=== PATIENT | male | born 1990 | race Caucasian/White ===

== ENCOUNTER 2016-12-01 10:26 | Emergency (ER) | payer SELFPAY ==
--- NOTE | 2016-12-08 08:15 | ER ---
ADMIT: 12/01/2016 RM/LOC: ER [facility] MR#: [id number] [address] [address] [place] [address] [address] Emergency Room Report SEX: M AGE: 26 : 1990 DATE: 12/01/2016 HISTORY OF PRESENT ILLNESS: Complaining of shortness of breath for 1 day. He says his brother has been smoking, and he is exposed to his cigarette smoke. He does have a history of asthma as he reports. He has an inhaler at home. He said it is not helping him. Upon arrival, he does not look like he is in any acute distress, but he said that this morning he was short of breath. PHYSICAL EXAMINATION: VITAL SIGNS: Within normal limits. GENERAL: Alert and oriented. Girlfriend at bedside. LUNGS: He does, however, have a respiratory examination. Decreased breath sounds. No wheezing though. O2 sat reveals 99% to 100%. EXTREMITIES: Nontender. NEUROLOGIC: Oriented x4. He was given a DuoNeb treatment and prescribed prednisone. Continue his medications at home. Hydration. Follow up with PCP. Given city call Dr. Cortes. SUNNY Pelletier / Darrion Howe MD / hiral JOB #: [id number] CC: Darrion Howe MD, Attending Physician Samson Cortes MD
== END 2016-12-01 11:50 | disposition home or self-care (01) ==
LOC: ER 10:26
DX: J45.901 Unspecified asthma with (acute) exacerbation (principal); Z79.899 Other long term (current) drug therapy

== ENCOUNTER 2017-03-01 10:42 | Emergency (ER) | payer SELFPAY ==
--- NOTE | 2017-03-09 18:05 | ER ---
ADMIT: 03/01/2017 RM/LOC: ER [facility] MR#: [id number] [id number] [place] [address] [address] Emergency Room Report SEX: M AGE: 26 : 1990 DATE: 03/01/2017 ADDENDUM: See T sheet for complete H and P. This 26-year-old male comes in with some chest pain. It has been going on for about 14 hours. 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 He denies any shortness of breath. No lightheadedness. No other symptoms. His past medical history is unremarkable other than some well-controlled GERD. The patient's physical exam was unremarkable other than he does have tenderness on his anterior chest wall with palpation. EKG shows no acute findings. Sinus rhythm, rate of 80. He was given Toradol here and had some improvement. He is discharged home to use ibuprofen 3 times a day for the next several days and to follow up with Dr. Cortes if symptoms are not improving and return to the ER for any concerning symptoms. DIAGNOSIS: Chest wall pain. El Isabel MD/ aroldo JOB #: [id number] CC: El Isabel MD, Attending Physician Samson Cortes MD, Family Physician
== END 2017-03-01 11:44 | disposition home or self-care (01) ==
LOC: ER 10:42
DX: R07.89 Other chest pain (principal); Z79.899 Other long term (current) drug therapy

== ENCOUNTER 2017-03-07 09:55 | Emergency (ER) | payer SELFPAY ==
--- NOTE | 2017-03-12 13:43 | ER ---
ADMIT: 03/07/2017 RM/LOC: ER [facility] MR#: [id number] [address] [address] [place] [address] [address] Emergency Room Report SEX: M AGE: 26 : 1990 DATE: 03/07/2017 ADDENDUM: CHIEF COMPLAINT: Left-sided chest pain. 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 He started developing left-sided chest pain. When I asked him more questions, it sounds like this could be more musculoskeletal or even reflux. He is tender on his chest wall, but then we did give him a GI cocktail and this took most of the pain away. When talking to him more, he does drink anywhere from 1-6 beers a day. He says he drinks every day. He has also been taking ibuprofen previous for this chest pain and says that is actually makes it worse. I told him to stop taking ibuprofen, limit his drinking, take [id number] Pepcid, and follow up with his PCP if worsen. CLINICAL IMPRESSION: Gastroesophageal reflux disease. SUNNY Albert / Pedrito Solo MD / hiral JOB #: [id number] CC: Pedrito Solo MD, Attending Physician
== END 2017-03-07 11:24 | disposition home or self-care (01) ==
LOC: ER 09:55
DX: K21.9 Gastro-esophageal reflux disease without esophagitis (principal); J45.909 Unspecified asthma, uncomplicated; Z79.899 Other long term (current) drug therapy